=== PATIENT | female | born 1950 | race Caucasian/White ===

== ENCOUNTER 2017-10-20 15:57 | Emergency (ER) | payer SELFPAY ==
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
[2017-10-20 16:35] LABS: BASO % 0.5 % (0-6); EOS % 2.9 % (0-6); GRAN % 42.4 % (47-80); HEMATOCRIT 43.4 % (35.0-47.0); HEMOGLOBIN 14.7 gm/dl (11.6-16.0); MEAN CORPUSCULAR HEMOGLOBIN 30.8 pg (27-33); MEAN CORPUSCULAR HGB CONC 33.9 g/dl (32-36); MEAN PLATELET VOLUME 10.3 fl (7.4-10.4); MONO % 7.2 % (0-9); PLATELET COUNT 234 K/uL (130-400); RED BLOOD COUNT 4.77 M/uL (3.80-5.40); WHITE BLOOD COUNT W/O DIFF 6.3 K/uL (4.2-12.2)
[2017-10-20 16:47] LABS: BLOOD UREA NITROGEN 15 mg/dL (8-23); CREATININE 0.6 mg/dL (0.5-0.9); EST GLOMERULAR FILTRATION RATE > 60 mL/min
[2017-10-20 16:49] LABS: GLUCOSE,RANDOM 88 mg/dL (74-109)
[2017-10-20 17:42] LABS: URINE APPEARANCE CLEAR; URINE BILIRUBIN NEGATIVE (NEGATIVE); URINE BLOOD NEGATIVE (NEGATIVE); URINE COLOR YELLOW; URINE GLUCOSE (UA) NEGATIVE (NEGATIVE); URINE KETONE NEGATIVE (NEGATIVE); URINE LEUKOCYTE ESTERASE TRACE (NEGATIVE); URINE NITRITE NEGATIVE (NEGATIVE); URINE PROTEIN NEGATIVE (NEGATIVE); URINE UROBILINOGEN 0.2 E.U./dL (0.20 - 1.00)
[2017-10-20 17:51] LABS: URINE BACTERIA NONE SEEN; URINE SQUAMOUS EPITHELIAL CELL 0 - 2 /hpf; URINE WBC 0 - 2 (0-2/hpf)
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
== END 2017-10-20 18:10 | disposition home or self-care (01) ==
LOC: ER 15:57
DX: S20.219A Contusion of unspecified front wall of thorax, initial encounter (principal); S80.12XA Contusion of left lower leg, initial encounter; R07.9 Chest pain, unspecified; I10 Essential (primary) hypertension; V43.52XA Car driver injured in collision with other type car in traffic accident, initial encounter; F17.210 Nicotine dependence, cigarettes, uncomplicated
CPT/HCPCS: 72125; 80048; 81001; 85025; 85730; 93005; 93010; 99284